=== PATIENT | female | born 2000 | race Caucasian/White ===

== ENCOUNTER 2019-07-05 13:00 | Outpatient (RCR) | payer BC, SELFPAY ==
--- NOTE | 2019-06-10 14:56 | HP.PTEVAL_ITS ---
Patient's Visit Information ROBIN JACOBS is a 18 year old F referred to Physical Therapy by AMPARO QUINTANA with a diagnosis of R Shoulder Pain. Date of Evaluation: 06/10/19 Physical Therapist: Patsy Martini DPT - Visit Plan Frequency: 2x /Week Duration: 4 Weeks Plan: Focus on improving core & scapular s/s, & decreasing pain. 06/10/19 HEP Prescribed: Scapular retractions, B Ext. Rot. GTB, Scapulr Wall Push-Ups - Subjective Findings: [employer] student from [place]- in [place] referred for shoulder pain. 2 years ago slipped & fell in shower, hurt for a few months then stopped. Over time issues arose again w/ certain movements intermittenly. Has progressively gotten worse. Describes pain as muscles locking up, sharp & shooting, radiating, deep burning pain that can last for days. Worst: 7-8/10. Aggravating factors: reaching w/ R UE. Is pain free times. Relief Factors: Rest, Ice, Advil. Pain does not subside for a couple days. Does interrupt sleep (sleeps on side). X-Ray - Negative MRI - torn labrum. N/T for the first 12 hours or so then stops. Pain mostly at R shoulder joint, does radiate down to forearm & fingers at time. Pain comes and goes throughout the day w/ daily activities. L hand dominant. De ny's any issues w/ aircraft design engineer changes & self-care activities. Suddenly jumpps from 0/10-8/10 pain. PMH/Meds: no sig changes. 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 - Objective Posture: RH, FS - corrected w/ V/C, but not maintained. Gait: No deviations noted, good arm swing & trunk rotation. Palpation: slightly TTP at lateral delt. ROM: C/S WFL, Wrist WFL, Elbow WFL, Shoulder WFL- no pain. Strength: Elbow 4+/5, Shoulder 4-/5 throughout, Pediatric Dental Assistant 5/5, Core: fair minus Scap strength/stabilization: 4-/5- no pain with strength testing. Sensation: WNL to gross B touch - Goals Goal 1:: Pt. will be I w/ HEP & progression. Goal Time Frame: 4-6 Weeks Goal 2:: Pt. will reort 0/10 pain level w/ ADL's Goal Time Frame: 4-6 Weeks Goal 3:: Pt. will maintain proper posture t/o tx session to demo increased scapular s/s Goal Time Frame: 4-6 Weeks Goal 4:: Patient will demo 5/5 strength in right UE Goal Time Frame: 4-6 Weeks - Rehabilitation Potential Physical Therapy Diagnosis: Presents w/ hypmobility, impaired UE/core muscular s/s, poor posture, and pain which leads to pain w/ ADL's. Rehabilitation Potential: Good - Anticipated Interventions Patient/Client Instruction: Educate patient on: Condition, Plan of Care, Benefits of Fitness Program For the Purpose of:: To decrease pain Therapeutic Exercise to Include: Strength training, Endurance training, Body mechanics, Postural training, Active ROM, Scapular Strength/Stabilization For the Purpose of:: To improve muscle performance and motor function Cryotherapy (ice pack, ice massage): Yes Thermo therapy (hot pack): Yes Ultrasound (thermal/non thermal): Yes For the Purpose of:: To decrease pain Thank you for the opportunity to evaluate your patient. For Medicare and Medicare HMO plans, please review the plan of care and approve it. It will need to be FAXED BACK to us at [phone] for Medicare purposes. For Medicare only, by signing this I certify the plan of care. Please let me know if there are questions or concerns regarding this plan of care. Physician Signature: Date:
--- NOTE | 2019-07-05 13:33 | HP.PTREVAL_ITS ---
AMPARO QUINTANA, It has been my pleasure to treat ROBIN JACOBS over the last 7 visits for R Shoulder Pain. Please see the progress note below for an update on the physical therapy plan of care! Subjective: Pt. reports that her shoulder is feeling good, but isn't quite there yet. Still reports her shoulder locking up at times w/ some discomf ort/pain. Spoke w/ from [facility] & would like to cont. PT at this time. Objective/Function: Posture: RH, FS - corrected w/ V/C, but not maintained. Gait: No deviations noted, good arm swing & trunk rotation. Palpation: slightly TTP at post./ant. delt. ROM: C/S WFL, Wrist WFL, Elbow WFL, Shoulder WFL- no pain. Strength: Shoulder 4-/5 throughout, Viscosity Worker 5/5, Core: fair minus Scap strength/stabilization: fair minus no pain with strength testing. Sensation: WNL to gross B touch. Special Tests: Instability (+) Plan Plan: 07/05/19 - 2x/week for 4 more weeks for further R UE strengthening, scapular strength/stabilization. Progress as tolerated. Goals Goal 1:: Pt. will be I w/ HEP & progression. Goal Time Frame: 4-6 Weeks Goal Progress: Progressing Goal 2:: Pt. will reort 0/10 pain level w/ ADL's Goal Time Frame: 4-6 Weeks Goal Progress: Progressing Goal 3:: Pt. will maintain proper posture t/o tx session to demo increased scapular s/s Goal Time Frame: 4-6 Weeks Goal Progress: Progressing Goal 4:: Patient will demo 5/5 strength in right UE Goal Time Frame: 4-6 Weeks Goal Progress: Progressing Anticipated Interventions Patient/Client Instruction: Educate patient on: Condition, Plan of Care, Benefits of Fitness Program For the Purpose of:: To decrease pain Therapeutic Exercise to Include: Strength training, Endurance training, Body mechanics, Postural training, Active ROM, Scapular Strength/Stabilization For the Purpose of:: To improve muscle performance and motor function Cryotherapy (ice pack, ice massage): Yes Thermo therapy (hot pack): Yes Ultrasound (thermal/non thermal): Yes For the Purpose of:: To decrease pain Please do not hesitate to contact me at [phone] by phone or if you have questions or concerns regarding this new plan of care! Sincerely, DANIEL OviedoT
--- NOTE | 2019-09-29 11:27 | HP.PT.NRP ---
HP - Discharge Summary (1) - Patient Information ROBIN JACOBS was seen in my office for initial evaluation on 06/10/19. The following Plan of Care was established for this patient: Initial Frequency: 2x /Week Initial Duration: 4 Weeks - Anticipated Interventions Patient/Client Instruction: Educate patient on: Condition, Plan of Care, Benefits of Fitness Program For the Purpose of:: To decrease pain Therapeutic Exercise to Include: Strength training, Endurance training, Body mechanics, Postural training, Active ROM, Scapular Strength/Stabilization For the Purpose of:: To improve muscle performance and motor function Cryotherapy (ice pack, ice massage): Yes Thermo therapy (hot pack): Yes Ultrasound (thermal/non thermal): Yes For the Purpose of:: To decrease pain This patient was last seen in our office . Pertinent comments regarding their Physical therapy will appear below: Patient has not attended Physical Therapy in over 4 weeks, appropriate for d/c at this time and return to MD for further evaluation as needed. At this point I will be discontinuing this patient from physical therapy. I would be happy to see this patient again in the future if found appropriate by the physician. Thank you! DANIEL OviedoT
== END 2019-07-05 19:00 | disposition home or self-care (01) ==
LOC: PT 13:00
DX: S43.491D Other sprain of right shoulder joint, subsequent encounter (principal); M25.511 Pain in right shoulder; S43.431D Superior glenoid labrum lesion of right shoulder, subsequent encounter
CPT/HCPCS: 97110; 97161; 97164